=== PATIENT | male | born 1990 | race Caucasian/White ===

== ENCOUNTER 2021-10-18 01:04 | Emergency (ER) | payer OTHER, SELFPAY ==
[2021-10-18 01:15] VITALS: BP 136/88; PULSE 90; RESP 18; TEMP 37; O2SAT 99; BMI 54.1
--- NOTE | 2021-10-18 02:51 | ED.GENADULT ---
HPI - General Adult General Chief complaint: Back Pain/Injury Stated complaint: back pain Time Seen by Provider: 10/18/21 02:40 Source: patient Mode of arrival: ambulatory Limitations: no limitations History of Present Illness HPI narrative: Patient comes to the emergency room complaining of back pain that started approximately 1.5 weeks ago. Patient states that he was carrying something heavy walking up the stairs. When he leaned forward to lower the heavy objects the floor, he felt a pop in his back. Patient denies any urinary/fecal incontinence/retention. Patient states that the pain occasionally goes down his right leg. Patient is unable to sleep tonight due to being unable to find a comfortable sleeping position. Patient states that he took Motrin without any relief. A few days ago, patient took oxycodone 10 mg from a neighbor which worked well. Patient states that now he has a migraine headache as well. Patient has been diagnosed with migraines in the past. No specific treatment for migraines. Patient denies nausea, vomiting, no visual changes. Related Data Previous Rx's Medication Instructions Recorded cyclobenzaprine 10 mg tablet 10 mg PO TID PRN muscle spasm #10 10/18/21 tabs ketorolac 10 mg tablet 10 mg PO TID PRN pain #7 tabs 10/18/21 sumatriptan succinate 50 mg tablet See Rx Instructions PO .COMPLEX 10/18/21 #10 tabs Allergies Allergy/AdvReac Type Severity Reaction Status Date / Time No Known Allergies Allergy Unverified 11/07/19 17:02 Review of Systems Review of Systems: Constitutional : No Weight loss, No Fever, No Chills, No Night Sweats, No Fatigue, No Malaise ENT/Mouth : No Hearing loss, No Ear Pain, No Nasal Congestion, No Sinus Pain, No Hoarseness, No sore throat, No Rhinorrhea, No Swallowing Difficulty Eyes: No Eye Pain, No Swelling, No Redness, No Foreign Body, No Discharge, No Vision Changes Cardiovascular : No Chest Pain, No SOB, No Dyspnea on Exertion, No Orthopnea, No Edema, No Palpitations Respiratory : No Cough, No Sputum, No Wheezing, No Smoke Exposure, No Dyspnea Gastrointestinal : No Nausea, No Vomiting, No Diarrhea, No Constipation, No abdominal Pain, No Hematochezia, No Melena Genitourinary : no irregular bleeding, No Dysuria, No Urinary Frequency, No Hematuria, No Urinary Incontinence, No Urgency, No Flank Pain, No Urinary Flow Changes, No Hesitancy Musculoskeletal : Complaining of back pain for 1 and half weeks, occasionally radiating down the right leg. Worse with back flexion and extension, No joint pain, No Myalgias, No Joint Swelling Skin : No Skin Lesions, No rash Neuro : No Weakness, No Numbness, No Paresthesias, No Loss of Consciousness, No Dizziness, complaining of a migraine headache Psych : No Anxiety/Panic, No Depression, No SI/HI/AH/VH, No Social Issues, Heme/Lymph: No Bruising, No Bleeding,No Lymphadenopathy Endocrine : No Polyuria, No Polydipsia, No Temperature Intolerance [facility] Past Medical History Medical History (Updated 10/18/21 @ 02:56 by Cristal Vidales MD) Migraines Social History Social History Advance Directives: No Advance Directives Information Provided: Yes Physical Exam ED Vital Signs: Vital Signs - 24 hr 10/18/21 01:15 Temperature 98.6 F Pulse Rate 90 Respiratory Rate 18 Blood Pressure 136/88 Pulse Oximetry 99 Oxygen Delivery Method Room Air BMI result Body Mass Index 54.1 Const Other: Appearance: Alert. Oriented X3. No acute distress. Eyes: Pupils equal, round and reactive to light. Seems to have photophobia ENT: Pharynx normal. Neck: Normal inspection. Neck supple. No lymph nodes noted. No crepitus CVS: Normal heart rate and rhythm. Pulses normal. Normal S1 and S2 Respiratory: No respiratory distress. Breath sounds normal. No Wheezing. No rales Abdomen: Soft and nontender. No rigidity. No distention. Back: Pain to palpation over the paraspinal muscles and lower back pain Skin: Skin warm and dry. Normal skin color. Normal skin turgor. Extremities: No lower extremity edema. No Lacerations. No Rash Neuro: Oriented X 3. No motor deficit. No sensory deficit. Moving all extremities. No slurred speech. CN 2 through 12 grossly intact Psych: calm, cooperative, normal affect Course Course Course Narrative: Negative for B symptoms. Patient's source of pain is likely musculoskeletal. Discussed with the patient that eventually he may need physical therapy. Patient given 1 dose of IM Toradol. For his migraine, the IM Toradol will help, also given p.o. Reglan. At this time, imaging is not indicated. Discharge Plan Discharge Clinical Impression: Strain of lumbar region, Headache, migraine Patient Disposition: Home, Self-Care Instructions: Migraine Headache (ED), Low Back Strain (ED), Lower Back Exercises (ED) Additional Instructions: Please follow-up with your primary care physician tomorrow. If you have any worsening or new symptoms, please return to the emergency room or call 911 Prescriptions: New cyclobenzaprine 10 mg tablet 10 mg PO TID PRN (Reason: muscle spasm) Qty: 10 0RF ketorolac 10 mg tablet 10 mg PO TID PRN (Reason: pain) Qty: 7 0RF Rx Instructions: Do not use this medication with aleve, ibuprofen, NSAIDs sumatriptan succinate 50 mg tablet See Rx Instructions .ROUTE .COMPLEX Qty: 10 0RF Rx Instructions: take 1 tab at onset of headache; if no relief may repeat 1 tab after at least 2 hrs; max = 4 tabs/24 hr
[2021-10-18] MEDS: Ketorolac Tromethamine 60 MG/2 ML VIAL IM (03:01)
[2021-10-18] MEDS: Metoclopramide HCl 10 MG TABLET PO (03:01)
[2021-10-18 03:02] VITALS: BP 117/65; PULSE 76; RESP 16
== END 2021-10-18 03:09 | disposition home or self-care (01) ==
PROVIDERS: Emergency Provider Emergency Medicine
DX: S39.012A Strain of muscle, fascia and tendon of lower back, initial encounter (principal); X50.0XXA Overexertion from strenuous movement or load, initial encounter; G43.919 Migraine, unspecified, intractable, without status migrainosus; Y93.89 Activity, other specified; Y92.019 Unspecified place in single-family (private) house as the place of occurrence of the external cause; Y99.9 Unspecified external cause status
CPT/HCPCS: 96372; 99284; J1885

== ENCOUNTER 2024-09-05 05:06 | Emergency (ER) | payer OTHER, SELFPAY ==
--- NOTE | ~2024-09-05 | CT_ITS ---
CLINICAL HISTORY: R flank pain CT abdomen and pelvis without contrast Comparison: None provided Findings: CT abdomen: Lung bases are clear. No acute bony abnormality. There is a 1 mm calculus within the distal right ureter just proximal to the right ureterovesicular junction. This results in [id number] right hydronephrosis and right hydroureter. No stones are seen within the right kidney. Unenhanced left kidney is unremarkable. Unenhanced liver, spleen, pancreas, gallbladder, and adrenal glands are unremarkable. Moderate ingested contents within the stomach. No dilated small bowel. CT pelvis: No findings of appendicitis. No colonic wall thickening or pericolonic inflammatory stranding. Urinary bladder is decompressed. No bladder calculi. No free fluid or free air. IMPRESSION: Mild right hydronephrosis and right hydroureter secondary to a 1 mm distal right ureteral calculus. This document has been electronically signed by: Rusty Mckeon MD on 09/05/2024 06:48:47
[2024-09-05 05:16] VITALS: BP 142/93; PULSE 77; RESP 20; O2SAT 98; BMI 52.7
--- NOTE | 2024-09-05 05:24 | ED_ITS ---
HPI - Male Genitourinary General Chief complaint: Urogenital-Male Stated complaint: groin pain + abd pain + vomiting Time Seen by Provider: 09/05/24 05:20 Source: patient Mode of arrival: ambulatory Limitations: no limitations History of Present Illness ED Provider: Dr. Cristal Vidales HPI Narrative: Patient comes to the emergency room complaining of right-sided flank pain that started a proximally 3 hours ago. Patient states that he has never passed kidney stones. Patient states that he has right-sided flank pain going into the right lower quadrant into the right testicle. Patient denies hematuria or dysuria. Denies fever chills Related Data Previous Rx's ?Medication ?Instructions ?Recorded cyclobenzaprine 10 mg tablet 10 mg PO TID PRN muscle s pasm #10 10/18/21 tabs ketorolac 10 mg tablet 10 mg PO TID PRN pain #7 tab s 10/18/21 sumatriptan succinate 50 mg tablet See Rx Instructions PO .COMPLEX 10/18/21 #10 tabs ketorolac 10 mg tablet 10 mg PO Q8H #12 tabs ondansetron HCl 4 mg tablet 4 mg PO Q6H PRN nausea and 09/05/24 vomiting #14 tabs prednisone 10 mg tablet 10 mg PO DAILY #3 tabs 09/05 tamsulosin 0.4 mg capsule 0.4 mg PO DAILY #14 caps Allergies Allergy/AdvReac Type Severity Reaction Status Date / Time No Known Allergies Allergy Verified 09/05/24 05:17 Review of Systems 2 Review of Systems: Constitutional : No Weight loss, No Fever, No Chills, No Night Sweats, No Fatigue, No Malaise ENT/Mouth : No Hearing loss, No Ear Pain, No Nasal Congestion, No Sinus Pain, No Hoarseness, No sore throat, No Rhinorrhea, No Swallowing Difficulty Eyes: No Eye Pain, No Swelling, No Redness, No Foreign Body, No Discharge, No Vision Changes Cardiovascular : No Chest Pain, No SOB, No Dyspnea on Exertion, No Orthopnea, No Edema, No Palpitations Respiratory : No Cough, No Sputum, No Wheezing, No Smoke Exposure, No Dyspnea Gastrointestinal : No Nausea, No Vomiting, No Diarrhea, No Constipation, No abdominal Pain, No Hematochezia, No Melena Genitourinary : no irregular bleeding, No Dysuria, No Urinary Frequency, No Hematuria, No Urinary Incontinence, No Urgency, complaining of right-sided Flank Pain, No Urinary Flow Changes, No Hesitancy Musculoskeletal : No joint pain, No Myalgias, No Joint Swelling Skin : No Skin Lesions, No rash Neuro : No Weakness, No Numbness, No Paresthesias, No Loss of Consciousness, No Dizziness, No Headache Psych : No Anxiety/Panic, No Depression, No SI/HI/AH/VH, No Social Issues, Heme/Lymph: No Bruising, No Bleeding,No Lymphadenopathy Endocrine : No Polyuria, No Polydipsia, No Temperature Intolerance COUNTS INCLUDE 234 BEDS AT THE [facility] Past Medical History Medical History Migraines Social History Social History Advance Directives: No Advance Directives Information Provided: Yes Do you have a plan to hurt others: No Plan Physical Exam 2 Vital Signs: Vital Signs: Last Vital Signs Temp 98.0 F 09/05/24 06:32 Pulse 74 09/05/24 06:32 Resp 20 09/05/24 06:32 BP 125/86 09/05/24 06:32 Pulse Ox 97 09/05/24 06:32 O2 Del Method Room Air 09/05/24 06:32 BMI result Body Mass Index 52.7 Const: Other: Appearance: Alert. Oriented X3. No acute distress. Eyes: Pupils equal, round and reactive to light. ENT: Pharynx normal. Neck: Normal inspection. Neck supple. No lymph nodes noted. No crepitus CVS: Normal heart rate and rhythm. Pulses normal. Normal S1 and S2 Respiratory: No respiratory distress. Breath sounds normal. No Wheezing. No rales Abdomen: Soft and nontender. No rigidity. No distention. Positive CVA tenderness on the right, negative inactive McBurney's point. : No scrotal swelling, testes look normal, minimal discomfort to palpation on the right testicle, no pain to palpation on the left Skin: Skin warm and dry. Normal skin color. Normal skin turgor. Extremities: No lower extremity edema. No Lacerations. No Rash Neuro: Oriented X 3. No motor deficit. No sensory deficit. Moving all extremities. No slurred speech. CN 2 through 12 grossly intact Psych: calm, cooperative, normal affect Course Course Course Narrative: Patient came in complaining of right-sided flank pain radiating into the right lower quadrant and right groin/right testicle Patient most likely is passing a kidney stone. Patient receiving IV fluids, ketorolac and Zofran CT scan pending Reevaluation(s) Reevaluation #1: no LIOR, urine has white blood cells but no bacteria will give one time dose of ceftriaxone given size of stone he will pass it stable for DC Medications Administered Discontinued Medications Generic Name Dose Route Start Last Admin Trade Name Barron PRN Reason Stop Dose Admin Hydromorphone HCl 1 mg 09/05/24 06:46 09/05/24 06:54 Hydromorphone Hcl 1 Mg/Ml Syringe IVPUSH 09/05/24 06:47 1 mg ONCE ONE Administration Protocol Sodium Chloride 1,000 mls @ 999 mls/hr 09/05/24 05:24 09/05/24 06:55 Ns IVCONT 09/05/24 06:24 Infused .Q1H1M ONE Infusion Ketorolac Tromethamine 30 mg 09/05/24 05:24 09/05/24 05:36 Ketorolac Tromethamine 30 Mg/Ml Vial IVPUSH 09/05/24 05:25 30 mg ONCE ONE Administration Morphine Sulfate 4 mg 09/05/24 05:57 09/05/24 06:01 Morphine Sulfate 4 Mg/Ml Cartridge IVPUSH 09/05/24 05:58 4 mg ONCE ONE Administration Protocol Morphine Sulfate 15 mg 09/05/24 08:28 09/05/24 08:42 Morphine Sulfate Immed Release 15 Mg Tablet PO 09/05/24 08:29 15 mg ONCE ONE Administration Ondansetron HCl 4 mg 09/05/24 05:24 09/05/24 05:36 Ondansetron Hcl 4 Mg/2 Ml Vial IVPUSH 09/05/24 05:25 4 mg ONCE ONE Administration Medical Decision Making Medical Decision Making MDM Narrative: My interpretation of labs: Patient's white blood cell count 13.9, likely reactive leukocytosis. Chemistry does not show any acute abnormality. Urinalysis pending CT scan shows a 1 mm kidney stone in the distal right ureter Patient has had multiple doses of pain medication including ketorolac, morphine, Dilaudid. Patient sleeping in the room. When patient is asked, pain, he states he is in a lot of pain and requesting more Dilaudid. At this time, patient just received the dose of Dilaudid, less than 5 minutes ago I discussed the above-mentioned with the patient, keep patient can be discharged once the urinalysis comes back. If urinalysis positive for UTI, please add antibiotic to discharge paperwork. Sign out given to my colleague Dr. Manning Differential Diagnosis Differential Diagnoses: The differential diagnosis associated with the presentation includes (UTI, pyelonephritis, ureterolithiasis) Admission/Observation Consideration of admission/observation: Escalation of care including admission/observation considered (Given patient's initial presentation, observation was considered) Lab Data MDM Lab Attestation statement: I reviewed the patient's lab results. 09/05/24 05:30 09/05/24 05:30 Labs: Lab Results 09/05/24 09/05/24 Range/Units 05:30 08:44 WBC 13.9 H (4.8-10.8) X10*3/uL RBC 5.57 (4.60-5.80) X10*6/uL Hgb 15.7 (14.0-18.0) g/dl Hct 45.9 (42.0-52.0) % MCV 82.4 (80.0-98.0) fL MCH 28.2 (27.0-33.0) pg MCHC 34.2 (31.0-36.0) g/dl RDW 16.4 H (11.0-16.0) % Plt Count 366 (160-400) X10*3/uL MPV 9.5 (9.4-12.4) fL Immature Gran % (Auto) 0.4 (0.0-0.4) % Neut % (Auto) 67.1 (45-73) % Lymph % (Auto) 22.4 (20-40) % [place] % (Auto) 7.3 (2-11) % Eos % (Auto) 2.2 (0-4) % Baso % (Auto) 0.6 (0-2) % Lymph # (Auto) 3.1 (1.2-4.9) X10*3/uL [place] # (Auto) 1.0 (0.1-1.2) X10*3/uL Eos # (Auto) 0.3 (0.0-0.4) X10*3/uL Baso # (Auto) 0.1 (0.0-0.2) X10*3/uL Abs Immat Gran (auto) 0.05 H (0.00-0.03) X10*3/uL Absolute Neuts (auto) 9.3 H (2.0-8.3) x10*3/uL Absolute Nucleated RBC 0.000 (0.0-0.012) X10*3/uL Nucleated RBC % (auto) 0.0 (0.0-0.2) /100WBC Sodium 142 (135-145) mmol/L Potassium 3.8 (3.3-5.1) mmol/L Chloride 108 (96-108) mmol/L Carbon Dioxide 24 (22-29) mmol/L Anion Gap 14 (12-20) BUN 11 (9-16) mg/dL Creatinine 1.16 (0.5-1.4) mg/dL Estim Creat Clear Calc 136.0 Estimated GFR > 60 Random Glucose 145 H (60-115) mg/dL Calcium 8.9 (8.4-10.2) mg/dL Total Bilirubin 0.3 (0.0-1.0) mg/dL Direct Bilirubin 0.1 (0.0-0.5) mg/dL AST 24 (5-37) U/L ALT 23 (0-40) U/L Alkaline Phosphatase 64 (39-117) U/L Total Protein 7.0 (6.5-8.0) g/dL Albumin 4.0 (3.5-5.0) g/dL Urine Color [place] A Urine Appearance Turbid Urine pH 7.0 (5.0-9.0) Ur Specific [place] >= 1.030 H (1.005-1.025) Urine Protein 100 (2+) H (Neg-Trace) mg/dL Urine Glucose (UA) Negative (Negative) mg/dL Urine Ketones 15 (Negative) mg/dL Urine Blood Large (3+) H (Negative) Urine Nitrite Negative (Negative) Ur Leukocyte Esterase Small (1+) H (Negative) Urine RBC >20 H (0-2) /HPF Urine WBC 21-50 H (0-5) /HPF Ur Squamous Epith Cells 6-10 (0-2) /HPF Urine Bacteria None Seen (None Seen) Hyaline Casts 0-2 (0-2) /LPF Independent Interpretation I performed an independent interpretation of an: CT Scan Radiology Impression Discussion of test interpretation with radiology: I have reviewed the radiologist's reading. Radiologist Impression: No findings of appendicitis. No colonic wall thickening or pericolonic inflammatory stranding. Urinary bladder is decompressed. No bladder calculi. No free fluid or free air. IMPRESSION: Mild right hydronephrosis and right hydroureter secondary to a 1 mm distal right ureteral calculus. Critical Care Time Critical Care Time Critical Care Time: Yes Total Critical Care Time: 35 Attestation: I have personally provided critical care time. Time includes review of lab data, radiology results, discussion with consultants, and monitoring for potential decompensation. Intervention performed as documented. Discharge Plan Discharge Clinical Impression: Ureterolithiasis Patient Disposition: Home, Self-Care Instructions: Ureteral Stones (ED) Additional Instructions: Please follow-up with your primary care physician tomorrow. If you have any worsening or new symptoms, please return to the emergency room or call 911 [facility] will be contacting you within 2 business?days after being discharged from the Emergency?Department.? During this?phone call, they will inform you when your follow up appointment will be scheduled. If you have not received a call from [facility] after 2 business?days, please call the?office at [phone]. Prescriptions: New ketorolac 10 mg tablet 10 mg PO Q8H Qty: 12 0RF Rx Instructions: Do not take this medication with NSAIDs/ibuprofen, only Tylenol if needed prednisone 10 mg tablet 10 mg PO DAILY Qty: 3 0RF ondansetron HCl 4 mg tablet 4 mg PO Q6H PRN (Reason: nausea and vomiting) Qty: 14 0RF tamsulosin 0.4 mg capsule 0.4 mg PO DAILY Qty: 14 0RF No Action cyclobenzaprine 10 mg tablet 10 mg PO TID PRN (Reason: muscle spasm) Qty: 10 0RF ketorolac 10 mg tablet 10 mg PO TID PRN (Reason: pain) Qty: 7 0RF Rx Instructions: Do not use this medication with aleve, ibuprofen, NSAIDs sumatriptan succinate 50 mg tablet See Rx Instructions .ROUTE .COMPLEX Qty: 10 0RF Rx Instructions: take 1 tab at onset of headache; if no relief may repeat 1 tab after at least 2 hrs; max = 4 tabs/24 hr Referrals: Marianela Biggs MD [Physician, Urology] Print Language: Greenlandic
[2024-09-05 05:34] LABS: MANUAL DIFF FLAG NO
[2024-09-05 05:35] LABS: Hematocrit 45.9 % (42.0-52.0); Hemoglobin 15.7 g/dl (14.0-18.0); Imm Gran Abs Auto 0.05 X10*3/uL (0.00-0.03); Imm Gran Pct Auto 0.4 % (0.0-0.4); Lymphocytes Absolute Auto 3.1 X10*3/uL (1.2-4.9); Mean Corpuscular HGB Conc 34.2 g/dl (31.0-36.0); Mean Corpuscular Hemoglobin 28.2 pg (27.0-33.0); Mean Corpuscular Volume 82.4 fL (80.0-98.0); NRBC Abs Auto 0.000 X10*3/uL (0.0-0.012); NRBC Pct Auto 0.0 /100WBC (0.0-0.2); Platelet Count 366 X10*3/uL (160-400); Red Blood Count 5.57 X10*6/uL (4.60-5.80); White Blood Count 13.9 X10*3/uL (4.8-10.8)
--- NOTE | 2024-09-05 05:37 | PC.NURSE ---
patient restless in the room, continuously asking for pain medications and something to drink. ice chips okay by provider. IV established, labs obtained and sent. patient medicated per the MAR w/ fluids infusing. patient unable to get comfortable at this time.
[2024-09-05 05:48] LABS: Alanine Aminotransferase 23 U/L (0-40); Albumin Level 4.0 g/dL (3.5-5.0); Alkaline Phosphatase 64 U/L (39-117); Anion Gap 14 (12-20); Aspartate Amino Transferase 24 U/L (5-37); Blood Urea Nitrogen 11 mg/dL (9-16); Calcium 8.9 mg/dL (8.4-10.2); Carbon Dioxide 24 mmol/L (22-29); Chloride 108 mmol/L (96-108); Creatinine Clr Calc Pharmacy 136.0; Estimated Glomerular Filt Rate > 60; Potassium 3.8 mmol/L (3.3-5.1); Sodium 142 mmol/L (135-145); Total Protein 7.0 g/dL (6.5-8.0)
--- NOTE | 2024-09-05 06:04 | PC.NURSE ---
returning from CT scan. continues to complain of 10/10 pain, stating the toradol did not work for his pain
[2024-09-05 06:32] VITALS: BP 125/86; PULSE 74; RESP 20; TEMP 36.7; O2SAT 97
--- NOTE | 2024-09-05 07:38 | PC.NURSE ---
patient provided with pitcher of water encouraged to drink to obtain urine sample.
[2024-09-05] MEDS: Morphine Sulfate Immed Release 15 MG TABLET PO (08:42)
[2024-09-05 09:09] LABS: Appearance Urine Turbid; Glucose Urine UA Negative (Negative); PH 7.0 (5.0-9.0); Specific Gravity - Urine >= 1.030 (1.005-1.025); UMIC TRIGGER UACC YES
[2024-09-05 09:11] LABS: UACC Culture Trigger YES
[2024-09-05 09:43] VITALS: BP 125/86; PULSE 74; RESP 20; TEMP 36.7; O2SAT 97
== END 2024-09-05 09:45 | disposition home or self-care (01) ==
PROVIDERS: Emergency Provider Emergency Medicine
DX: N20.1 Calculus of ureter (principal); R10.31 Right lower quadrant pain; R10.2 Pelvic and perineal pain; R11.2 Nausea with vomiting, unspecified
CPT/HCPCS: 36415; 74176; 80048; 80076; 81001; 81003; 85025; 87086; 96361; 96374; 96375; 99285; 99291; J0696; J1171; J1885; J2270; J2405

== ENCOUNTER → 2024-09-05 05:24 | Outpatient (BNV) | payer OTHER, SELFPAY | PROVIDERS: Emergency Provider Emergency Medicine; Visit Provider Radiology Diagnostic Radiology | DX: N13.2 Hydronephrosis with renal and ureteral calculous obstruction (principal) | CPT/HCPCS: 74176 ==